=== PATIENT | male | born 1955 | race Two or more races ===

== ENCOUNTER 2019-07-17 11:35 | Emergency (ER) | payer OTHER ==
[2019-07-17] MEDS ORDERED: Ketorolac 60 MG/2 ML SDV IM ONE (11:48)
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
== END 2019-07-17 12:26 | disposition home or self-care (01) ==
LOC: MW.ED 11:35
DX: M54.6 Pain in thoracic spine (principal); V47.5XXA Car driver injured in collision with fixed or stationary object in traffic accident, initial encounter
CPT/HCPCS: 96372; 99283; J1885